=== PATIENT | female | born 1985 | race Caucasian/White ===

== ENCOUNTER 2018-02-04 06:58 | Emergency (ER) | payer OTHER ==
[2018-02-04 07:05] VITALS: BP 121/92
[2018-02-04] MEDS ORDERED: Acetaminophen 325 MG Tab PO ONE (07:19)
--- NOTE | 2018-02-04 07:28 | EDM.PDOC ---
ED HPI GENERAL MEDICAL PROBLEM - General Chief Complaint: ENT Problem Stated Complaint: STREP THROAT / EARS Time Seen by Provider: 02/04/18 07:15 Source of Information: Reports: Patient History Limitations: Reports: No Limitations - History of Present Illness INITIAL COMMENTS - FREE TEXT/NARRATIVE: This 32 yo female patient reports to the ED with a sore throat and pain in her right ear. The patient was seen in the Clinic on Friday and had a shot of penicillin, was feeling better yesterday, but not feeling well again this morning. The patient reports she has not taken anything since last night for temporary symptom relief. Duration: Day(s):, Constant, Getting Worse Location: Reports: Head, Neck Quality: Reports: Ache, Sharp, Stabbing Severity: Severe Improves with: Reports: None Worsens with: Reports: None Associated Symptoms: Reports: No Other Symptoms Throat Pain Score (Numeric/FACES): 8 - Related Data Allergies Allergy/AdvReac Type Severity Reaction Status Date / Time aspirin Allergy Hives Verified 02/04/18 07:06 brompheniramine maleate Allergy Blurred Verified 02/04/18 07:06 [From [employer] (brompheniramine-PPA)] phenylpropanolamine HCl Allergy Blurred Verified 02/04/18 07:06 [From [employer] (brompheniramine-PPA)] Home Meds: Home Meds . 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 ED EXAM, ENT - Physical Exam Exam: See Below Exam Limited By: No Limitations General Appearance: Alert, WD/WN, Moderate Distress Eye Exam: Bilateral Eye: EOMI, Normal Inspection, PERRL Ears: Normal External Exam, Normal Canal, Hearing Grossly Normal, Other (TM retraction bilaterally) Nose: Normal Inspection, Normal Mucousa, No Blood Mouth/Throat: Pharyngeal Erythema, Tonsillar Erythema, Tonsillar Exudates, Tonsillar Swelling Head: Atraumatic, Normocephalic Neck: Full Range of Motion, Lymphadenopathy (L), Lymphadenopathy (R) Respiratory/Chest: No Respiratory Distress, Lungs Clear, Normal Breath Sounds, No Accessory Muscle Use, Chest Non-Tender Cardiovascular: Normal Peripheral Pulses, Regular Rate, Rhythm, No Edema, No Gallop, No JVD, No Murmur, No Rub GI/Abdominal: Normal Bowel Sounds, Soft, Non-Tender, No Organomegaly, No Distention, No Abnormal Bruit, No Mass (Female) Exam: Deferred Rectal (Female) Exam: Deferred Back: Normal Inspection, Full Range of Motion Extremities: Normal Inspection, Normal Range of Motion, Non-Tender, No Pedal Edema, Normal Capillary Refill Neurological: Alert, Oriented, CN II-XII Intact, Normal Cognition, Normal Gait, Normal Reflexes, No Motor/Sensory Deficits Psychiatric: Normal Affect, Normal Mood Skin: Warm, Dry, Intact, Normal Color, No Rash Lymphatic: No Adenopathy Course - Vital Signs Last Recorded V/S: Last Vital Signs Temp 36.9 C 02/04/18 07:03 Pulse 103 H 02/04/18 07:03 Resp 18 02/04/18 07:03 BP 121/92 H 02/04/18 07:03 Pulse Ox 99 02/04/18 07:03 - Orders/Labs/Meds Labs: Laboratory Tests 02/04/18 02/04/18 Range/Units 07:30 07:30 WBC 12.9 H (5.0-10.0) 10^3/uL RBC 4.08 L (4.2-5.4) 10^6/uL Hgb 11.0 L D (12.0-16.0) g/dL Hct 34.1 L (37.0-47.0) % MCV 83.6 D (80-100) fL MCH 27.0 (27.0-34.0) pg MCHC 32.3 L (33.0-35.0) g/dL Plt Count 299 (150-450) 10^3/uL Neut % (Auto) 80.8 H (42.2-75.2) % Lymph % (Auto) 12.7 L (20.5-50.1) % Bradley % (Auto) 5.8 (2-8) % Eos % (Auto) 0.5 L (1.0-3.0) % Baso % (Auto) 0.2 (0.0-1.0) % Monoscreen Negative Meds: Medications Discontinued Medications Generic Name Dose Route Start Last Admin Trade Name Tevni PRN Reason Stop Dose Admin Acetaminophen 650 mg 02/04/18 07:19 02/04/18 07:35 Tylenol PO 02/04/18 07:20 650 mg NOW ONE Administration Departure - Departure Time of Disposition: 08:08 Disposition: Home, Self-Care 01 Condition: Fair Clinical Impression: Strep pharyngitis - Discharge Information *PRESCRIPTION DRUG MONITORING PROGRAM REVIEWED*: Not Applicable *COPY OF PRESCRIPTION DRUG MONITORING REPORT IN PATIENT EDWARD: Not Applicable Instructions: Strep Throat, [id number] Forms: ED Department Discharge Care Plan Goals: The patient was advised of the examination and lab results during the visit. The patient was given a prescription for Keflex (500 mg) to take 1 by mouth 2 times per day for 10 days. The patient may continue to take Tylenol and ibuprofen for temporary symptom relief. If the patient has any additional symptoms or concerns, the patient should follow-up with her primary care facility or return to the emergency department.
== END 2018-02-04 08:15 | disposition home or self-care (01) ==
LOC: DL.ED 06:58
DX: J02.0 Streptococcal pharyngitis (principal); Z88.8 Allergy status to other drugs, medicaments and biological substances; Z88.6 Allergy status to analgesic agent
CPT/HCPCS: 36415; 85025; 86308; 99283; A9270